=== PATIENT | female | born 1950 | race American Indian/Alaskan Native ===

== ENCOUNTER 2021-12-13 12:17 | Emergency (ER) | payer SELFPAY ==
--- NOTE | 2021-12-13 16:03 | Emergency Department Report ---
ED Extremity Problem HPI - General Chief complaint: Extremity Problem,Nontraumatic Stated complaint: CANT WALK Time Seen by Provider: 12/13/21 15:53 Source: patient Mode of arrival: Wheelchair Limitations: No Limitations - History of Present Illness Initial comments: 71-year-old -[place] female presents to the emergency room stating she has left foot pain that started since Saturday evening. Patient states she had this before about 5 or 6 years ago but denies any injury. Patient states that she started having pain when she got up and put her feet on the floor. She states since then has not been able to bear weight. She denies any injury. She reports she has taken nothing for discomfort. She denies any primary care provider and states she is a liver transplant recipient and is usually followed by [place]. Complaint: extremity pain Location: left, lower extremity History of Same: Yes (About 5 years ago) -: Yes arthralgia Severity scale (0 -10): 9 Quality: burning, sharp Consistency: intermittent Improves with: immobilization Worsens with: weight bearing, walking, palpation Associated Symptoms: denies other symptoms - Related Data Previous Rx's Medication Instructions Recorded Last Taken Type oxyCODONE /ACETAMINOPHEN [Percocet 1 - 2 tab PO Q6HR PRN #20 tablet 15 Unknown Rx 5/325] Allergies Allergy/AdvReac Type Severity Reaction Status Date / Time No Known Allergies Allergy Verified 12/13/21 13:26 ED Review of Systems ROS: Stated complaint: CANT WALK Other details as noted in HPI Comment: All other systems reviewed and negative ED Past Medical Hx - Past Medical History Hx Liver Disease: Yes (HEPATITIS C ; CIRRHOSIS; CANCER) - Surgical History Hx Cholecystectomy: Yes Additional Surgical History: LIVER TRANSPLANT JANUARY 2015 [facility]. HERNIA REPAIR - Social History Smoking Status: Former Smoker (none 1 year) Substance Use Type: Prescribed - Medications Home Medications: Home Medications Medication Instructions Recorded Confirmed Last Taken Type oxyCODONE /ACETAMINOPHEN [Percocet 1 - 2 tab PO Q6HR PRN #20 tablet 05/24/15 Unknown Rx 5/325] ED Physical Exam - General Limitations: No Limitations General appearance: alert, in no apparent distress - Head Head exam: Present: atraumatic, normocephalic - Eye Eye exam: Present: normal appearance - ENT ENT exam: Present: normal external ear exam - Neck Neck exam: Present: normal inspection, full ROM - Respiratory Respiratory exam: Absent: respiratory distress - Cardiovascular Cardiovascular Exam: Present: regular rate - Expanded Lower Extremity Exam Left Hip exam: Present: full ROM Upper Leg exam: Present: normal inspection, full ROM Knee exam: Present: normal inspection, full ROM Lower Leg exam: Present: normal inspection, full ROM Ankle exam: Present: normal inspection, full ROM. Absent: tenderness, swelling, abrasion Foot/Toe exam: Present: full ROM, tenderness (Plantar aspect near the heel). Absent: swelling, abrasion, laceration, ecchymosis, deformity, crepidus, dis location, erythema, amputation, puncture wound, foreign body, calcaneal tenderness, tenderness at base of 5th metatarsal, nail avulsion, subungual hematoma Neuro vascular tendon exam: Present: no vascular compromise, abnormal 2-point discrimination. Absent: pulse deficit, foot drop ED Course Vital Signs 12/13/21 13:23 Temperature 97.6 F Pulse Rate 69 Respiratory 18 Rate Blood Pressure 141/95 [Right] O2 Sat by Pulse 100 Oximetry ED Medical Decision Making - Radiology Data Radiology results: report reviewed Study Comments [facility] [address] [place] [address] XRay Report Signed Patient: KEHINDE DOWNEY MR#: [id number] : 1950 Acct:[id number] Age/Sex: 71 / F ADM Date: 12/13/21 Loc: ED Attending Dr: Ordering Physician: FREIDA ANTHONY Date of Service: 12/13/21 Procedure(s): XR foot 3+V LT Accession Number(s): [id number] cc: FREIDA ANTHONY Fluoro Time In Minutes: LEFT FOOT 3 VIEWS. INDICATION / CLINICAL INFORMATION: plantar pain COMPARISON: None available. FINDINGS: BONES / JOINT(S): No acute fracture or subluxation. No significant arthritis. SOFT TISSUES: No significant abnormality. ADDITIONAL FINDINGS: None. IMPRESSION: 1. No acute findings involve the left foot. Signer Name: Magui Carrillo II, MD Signed: 12/13/2021 4:26 PM Workstation Name: [id number] Transcribed By: MERARI Dictated By: MAGUI CARRILLO II, MD Electronically Authenticated By: MAGUI CARRILLO II, MD Signed Date/Time: 12/13/211625 DD/ 24 TD/TT: - Medical Decision Making 71-year-old -[place] female presents to the emergency room stating she has left foot pain that started since Saturday evening. Patient states she had this before about 5 or 6 years ago but denies any injury. Patient states that she started having pain when she got up and put her feet on the floor. She states since then has not been able to bear weight. She denies any injury. She reports she has taken nothing for discomfort. She denies any primary care pr ovider and states she is a liver transplant recipient and is usually followed by [place]. X-ray to left foot has been ordered. This appears to most likely be Planter fasciitis. X-ray is negative will refer to account services manager/employee placement specialist. Patient can take pain medication that she usually takes. Critical care attestation.: If time is entered above; I have spent that time in minutes in the direct care of this critically ill patient, excluding procedure time. ED Disposition Clinical Impression: Plantar fasciitis of left foot Disposition: HOME / SELF CARE / HOMELESS Is pt being admited?: No Does the pt Need Aspirin: No Condition: Stable Instructions: Plantar Fasciitis Rehab-SportsMed, Plantar Fasciitis Additional Instructions: Your x-ray is negative for any acute abnormalities. Your exam is indicative of Planter fasciitis. I recommend ibuprofen for pain management. I recommend following up with a account services manager or orthopedist. Referrals: PRIMARY CAREMD [Primary Care Provider] - 3-5 Days [facility] [Provider Group] - 3-5 Days LEONARDO NORTON DPM [Staff Physician] - 3-5 Days Forms: Work/School Release Form(ED) Time of Disposition: 16:48
--- NOTE | 2021-12-13 16:30 | XRay Report ---
LEFT FOOT 3 VIEWS. INDICATION / CLINICAL INFORMATION: plantar pain COMPARISON: None available. FINDINGS: BONES / JOINT(S): No acute fracture or subluxation. No significant arthritis. SOFT TISSUES: No significant abnormality. ADDITIONAL FINDINGS: None. IMPRESSION: 1. No acute findings involve the left foot. Signer Name: Sylvester Simpson II, MD Signed: 12/13/2021 4:26 PM Workstation Name: Virtual 3-D Display for [facility]phonesDAY[id number]
[2021-12-13 17:11] VITALS: BP 125/78
== END 2021-12-13 17:10 | disposition home or self-care (01) ==
LOC: ED 12:17
DX: M72.2 Plantar fascial fibromatosis (principal); Z87.891 Personal history of nicotine dependence; Z90.49 Acquired absence of other specified parts of digestive tract
CPT/HCPCS: 99283